=== PATIENT | female | born 1960 | race Two or more races ===

== ENCOUNTER 2018-03-18 16:11 | Emergency (ER) | payer OTHER ==
[~2018-03-18] VITALS: Ht 160 cm; Wt 68.0 kg
--- NOTE | 2018-03-18 16:15 | NUR ---
PT BIB [facility] WITH A C/O LEFT SIDED CP X 1HR SHALLOT PACKER. PT REC'D 162MG ASPIRIN AND 2 SPRAYS OF NITRO IN THE FIELD. PT STATED THAT HER PAIN IS SHARP AND IS ONLY WHEN SHE MOVES, PALPATES THE LEFT CHEST OR TAKES A DEEP BREATH. PT IS ON THE MONITOR AND CONTINUOUS PULSE OX. VSS. PT HAS 18G RT WRIST SHALLOT PACKER.
--- NOTE | 2018-03-18 16:35 | NUR ---
BLOOD DRAWN AND SENT TO LAB.
[2018-03-18 16:53] LABS: BASOPHILS % (AUTO) 0.5 % (0.0-2.0); EOSINOPHILS % (AUTO) 3.5 % (0.0-6.0); HEMATOCRIT 39 % (33-45); HEMOGLOBIN 13.1 g/dL (11.5-14.8); LYMPHOCYTES % (AUTO) 43.8 % (20.0-44.0); MEAN CORPUSCULAR HEMOGLOBIN 31 PG (26.0-33.0); MEAN CORPUSCULAR HGB CONC 34 g/dl (31.0-36.0); MEAN CORPUSCULAR VOLUME 91 fL (82-100); MONOCYTES # (AUTO) 0.4 /CMM (0.1-1.30); MONOCYTES % (AUTO) 4.5 % (2.0-12.0); NEUTROPHILS # (AUTO) 4.3 /CMM (1.8-8.9); NEUTROPHILS % (AUTO) 47.7 % (43.0-81.0); PLATELET COUNT (AUTO) 313 /CMM (150-450); RDW COEFFICIENT OF VARIATION 13.5 (11.5-15.0)
[2018-03-18] MEDS ORDERED: ALPRAZOLAM 0.5 MG TABLET ONE (16:53)
[2018-03-18 16:56] LABS: CALCIUM, SERUM 9.6 mg/dL (8.5-10.1); CARBON DIOXIDE 21 mmol/L (21-32); CHLORIDE 108 mmol/L (98-107); CREATININE 0.9 mg/dL (0.6-1.3); GLUCOSE 111 mg/dL (74-106); POTASSIUM 3.5 mmol/L (3.5-5.1); SODIUM SERUM 141 mmol/L (136-145); UREA NITROGEN, BLOOD 17 mg/dL (7-18)
--- NOTE | 2018-03-18 16:59 | NUR ---
PT'S DAUGHTER IS AT THE BEDSIDE. PT USED THE BEDPAN. APPROX 500 ML CLEAR URINE OUTPUT NOTED. SAMPLE OBTAINED AND SENT TO LAB.
[2018-03-18] MEDS ORDERED: ALPRAZOLAM 0.5 MG TABLET PO ONE (17:00)
--- NOTE | 2018-03-18 17:00 | NUR ---
PT REC'D MEDICATION ORDERED AND IS RESTING COMFORTABLY. PT IS ON THE MONITOR AND CONTINUOUS PULSE. OX.
[2018-03-18 17:02] LABS: INR 0.95 (0.87-1.13)
[2018-03-18 17:06] LABS: TROPONIN I < 0.017 ng/mL (0.00-0.056)
--- NOTE | 2018-03-18 19:09 | NUR ---
PT NEEDS REPEAT TROPONIN AT 1930
--- NOTE | 2018-03-18 19:32 | NUR ---
BREAKER UP MACHINE OPERATOR AT BEDSIDE FOR BLOOD DRAW.
--- NOTE | 2018-03-18 20:21 | NUR ---
IV removed. Catheter intact and site benign. Pressure and 4x4 applied to site. No bleeding noted. Patient discharged to home in stable condition. Written and verbal after care instructions given. Patient verbalizes understanding of instruction. ambulatory with a steady gait noted. pt [id number] no acute distress noted, resp even and unlabored. advice pt not to drive or operate any machienry due to pt was given anrcotic medicine. pt daughter at bedside to take pt home.
[2018-03-18 20:22] VITALS: BP 108/61
== END 2018-03-18 20:41 | disposition home or self-care (01) ==
LOC: EDBD 16:13 → ER 16:13
DX: R07.89 Other chest pain (principal); F41.9 Anxiety disorder, unspecified; R00.1 Bradycardia, unspecified; E11.9 Type 2 diabetes mellitus without complications
CPT/HCPCS: 36415; 71045-TC; 80048-TC; 84484-TC; 85025-TC; 85730-TC; A4606; Z7610